=== PATIENT | female | born 1985 | race Caucasian/White ===

== ENCOUNTER 2020-02-29 19:15 | Emergency (ER) | payer BC ==
[~2020-02-29] VITALS: Ht 188 cm; Wt 105.5 kg
[2020-02-29 19:23] VITALS: BP 123/88; TEMP 98.2
[2020-02-29] MEDS ORDERED: PAXIL 10MG10 MG PO (19:26)
[2020-02-29] MEDS ORDERED: PHENTERMINE15 MG PO (19:26)
[2020-02-29 21:13] VITALS: PULSE 92
== END 2020-02-29 21:13 | disposition home or self-care (01) ==
LOC: COL.ER 19:15
DX: S81.812A Laceration without foreign body, left lower leg, initial encounter (principal); F41.9 Anxiety disorder, unspecified; F17.290 Nicotine dependence, other tobacco product, uncomplicated; Z23 Encounter for immunization; W31.82XA Contact with other commercial machinery, initial encounter; Y92.009 Unspecified place in unspecified non-institutional (private) residence as the place of occurrence of the external cause